=== PATIENT | male | born 1960 | race Caucasian/White ===

== ENCOUNTER 2016-07-17 13:39 | Emergency (ER) | payer MEDICAID ==
--- NOTE | 2016-07-17 13:42 | EDPHY ---
H & P Time Seen by Provider: 07/17/16 13:42 - Personal History Tetanus Vaccine Date: < 10 YEARS - Medical/Surgical History Hx Asthma: No Hx Chronic Respiratory Disease: No Hx Diabetes: No Hx Cardiac Disease: No Hx Renal Disease: No Hx Cirrhosis: No Hx Alcoholism: Yes Hx HIV/AIDS: No Hx Splenectomy or Spleen Trauma: No Other PMH: FACIAL SURGERY FRO RECONSTRUCTION. ETOH, Schizophrenia, IVDA- METHAMPHETAMINE - Social History Smoking Status: Current every day smoker Constitutional: Initial Vital Signs Temperature (C) 37.1 C 07/17/16 13:47 Heart Rate 105 H 07/17/16 13:47 Respiratory Rate 20 07/17/16 13:47 Blood Pressure 136/122 H 07/17/16 13:47 O2 Sat (%) 95 07/17/16 13:47 O2 Delivery Mode Room Air Allergies/Adverse Reactions: No Known Allergies Allergy (Verified 01/08/16 13:47) Home Medications: Medication Instructions Recorded Penicillin V Potassium [Pen Vk 500 mg PO Q6H 10 Days 07/17/16 500mg (*)] Medical Decision Making ED Course/Re-evaluation: CHIEF COMPLAINT: Cough, palpitations. HISTORY OF PRESENT ILLNESS: The patient is a 56-year-old male who presents via EMS with palpitations and cough. He reports that he has had these palpitations since he was age 20 and they are not different in any way today. He has also been complaining of productive cough. He denies fever, chills, vomiting, nausea , abdominal pain. He smoked meth 2 hours ago and has had a pint of whiskey. REVIEW OF SYSTEMS: A 10 point review of systems was performed and is negative with the exception of the elements mentioned in the history of present illness. PHYSICAL EXAM: HR, BP, O2 Sat, RR. Temp noted General Appearance: Alert, well hydrated, appropriate, and non-toxic appearing. Head: Atraumatic without scalp tenderness or obvious injury Eyes: Pupils equal, round, reactive to light and accommodation, EOMI, no trauma , no injection. Ears: Clear bilaterally, no perforation, normal landmarks Nose: Atraumatic, no rhinorrhea, clear. Throat: There are no exudates, no lesions, normal tonsils, mucus membranes moist. Pharyngeal erythema. Neck: Supple, 2+ carotid upstroke, nontender, no lymphadenopathy. Respiratory: No retractions, no distress, no wheezes, and no accessory muscle use. Lungs are clear to auscultation bilaterally. Cardiovascular: Regular rate and rhythm, no murmurs, rubs, or gallops. Bilateral carotid, radial, dorsalis pedis, and posterior tibial pulses intact. Good capillary refill all extremities. Gastrointestinal: Abdomen is soft, nontender, non-distended, no masses, no rebound, no guarding, no peritoneal signs. Musculoskeletal: Normal active ROM of all extremities, atraumatic. Neurological: Alert, appropriate, and interactive. The patient has normal DTRs and non-focal cranial nerves, motor, sensory, and cerebellar exam. Skin: No rashes, good turgor, no nodules on palpation. Past medical history: Schizophrenia. Past surgical history: N/A. Family history: N/A. Social history: Alcohol abuse, methamphetamine abuse. DIFFERENTIAL DIAGNOSIS: The differential diagnosis includes, but is not limited to: pharyngitis, laryngitis, viral syndrome, bronchitis, pneumonia. MEDICAL DECISION MAKIN-year-old homeless alcoholic male presents via EMS for cough and palpitations. He has had these palpitations since age 20 and they are not different in any way today. He does not have chest pain or shortness of breath. He is complaining of productive cough that he has had for the past month and sore throat. On exam he has pharyngeal erythema and has an obvious pharyngitis. I will treat him with 10 days BID 500mg Pen Vk. He is comfortable with the plan. He does not need labs or EKG at this time. Departure - Departure Disposition: Home, Routine, Self-Care Clinical Impression: Pharyngitis Qualifiers: Pharyngitis/tonsillitis etiology: unspecified etiology Qualified Code(s): J02.9 - Acute pharyngitis, unspecified Condition: Good Instructions: Pharyngitis (ED) Additional Instructions: Take the antibiotic as prescribed. Drink plenty of fluids and be sure to get rest. Return for any serious worsening of condition. Referrals: Patient,NotPresent [Primary Care Provider] - As per Instructions [facility],. [Clinic] - As per Instructions Prescriptions: Penicillin V Potassium [Pen Vk 500mg (*)] 500 mg PO Q6H 10 Days Report Scribed for: Marques Rojas Report Scribed by: Ignacio Therhwanger Date of Report: 07/17/16 Time of Report: 13:45
[2016-07-17 13:49] VITALS: TEMP 98.8; O2SAT 95
[2016-07-17 14:17] VITALS: BP 130/90; PULSE 96; RESP 18
== END 2016-07-17 14:16 | disposition home or self-care (01) ==
LOC: EDUNIT#
DX: J02.9 Acute pharyngitis, unspecified (principal); F17.200 Nicotine dependence, unspecified, uncomplicated

== ENCOUNTER 2016-07-26 13:48 | Emergency (ER) | payer MEDICAID ==
[2016-07-26 14:00] VITALS: BP 107/92; PULSE 83; RESP 16; TEMP 98.1; O2SAT 92
== END 2016-07-26 15:10 | disposition left against medical advice (07) ==
DX: Z53.21 Procedure and treatment not carried out due to patient leaving prior to being seen by health care provider (principal)

== ENCOUNTER 2018-01-06 17:18 | Emergency (ER) | payer MEDICAID, OTHER ==
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
[2018-01-06] MEDS ORDERED: SKIN ADHESIVE (DERMABOND) 1 EACH TP ONE (17:47)
[2018-01-06 19:00] VITALS: BP 107/68
== END 2018-01-06 19:00 | disposition home or self-care (01) ==
PROC: 09Q1XZZ Repair Left External Ear, External Approach (ICD-10-PCS; principal; 2018-01-06)
DX: S01.312A Laceration without foreign body of left ear, initial encounter (principal); S01.01XA Laceration without foreign body of scalp, initial encounter; F17.200 Nicotine dependence, unspecified, uncomplicated; W22.8XXA Striking against or struck by other objects, initial encounter; Y92.149 Unspecified place in prison as the place of occurrence of the external cause; Y99.9 Unspecified external cause status; Y93.9 Activity, unspecified